=== PATIENT | male | born 1945 | race Caucasian/White ===

== ENCOUNTER 2016-11-05 10:57 | Outpatient (CLI) ==
[2014-06-30 17:52] VITALS: BMI 32.8
== END 2016-11-05 10:58 ==
LOC: AMBL 10:57
PROVIDERS: ATTEND Family Medicine
DX: Z04.1 Encounter for examination and observation following transport accident (principal); V43.62XA Car passenger injured in collision with other type car in traffic accident, initial encounter

== ENCOUNTER 2017-12-07 07:53 | Day surgery (SDC) ==
[2014-06-30 17:52] VITALS: BMI 32.8
[2017-12-07] MEDS ORDERED: LIDOCAINE 1% 20 ML MDV ID STA (09:00)
[2017-12-07 09:10] VITALS: TEMP 98.2
[2017-12-07] MEDS ORDERED: VERSED ONE (10:35)
[2017-12-07] MEDS ORDERED: DIPRIVAN 20 ML VIAL IVP ONE (10:35)
[2017-12-07 11:47] VITALS: BP 121/67
--- NOTE | 2017-12-08 08:22 | OP ---
PROCEDURE: COLONOSCOPY TO THE CECUM. ENDOSCOPIST: Laly EASTON M.D. INDICATION: HISTORY OF POLYPS INSTRUMENT: [employer]oupe-190. MEDICATION: PER ANESTHESIA. PROCEDURE: The patient was positioned for colonoscopy. The digital rectal exam was negative. The colonoscope was advanced through the rectum into the colon from there to the level of the cecum. Difficult exam related to tortuosity and poor visibility. [place] Bowel Prep score 1+2+1=4. At the hepatic flexure we found a 1cm polyp at the hepatic flexure. Difficulty remaining positioning on it. Removed with some mild oozing and a clip was placed. An enlongated pedunculated polyp in the transverse colon removed using snare cautery. Again the prep was poor through most of the colon making it difficult to see polyps. Retroflex exam was negative. Withdraw time 9 minutes and 15 seconds. It should be noted that we spent most of her time on inserted trying to removed the hepatic flexure polyp. PLAN: 1. Repeat in 6 months with a 2 day prep at that time. CC: Dr. Adebayo ZAMUDIO
== END 2017-12-07 11:45 | disposition home or self-care (01) ==
LOC: SURG 07:53
PROVIDERS: ATTEND Internal Medicine Gastroenterology
DX: Z86.010 Personal history of colon polyps (principal); D12.3 Benign neoplasm of transverse colon

== ENCOUNTER 2018-06-21 07:41 | Day surgery (SDC) ==
[2014-06-30 17:52] VITALS: BMI 32.8
[2018-06-21 08:17] VITALS: TEMP 98.3
[2018-06-21] MEDS ORDERED: LIDOCAINE 1% 20 ML MDV ID STA (08:19)
[2018-06-21] MEDS ORDERED: DIPRIVAN 20 ML VIAL IVP ONE (09:00)
[2018-06-21] MEDS ORDERED: VERSED ONE (09:00)
[2018-06-21 10:53] VITALS: BP 112/56
--- NOTE | 2018-06-22 11:20 | OP ---
PROCEDURE: COLONOSCOPY TO THE CECUM WITH SNARE POLYPECTOMY. ENDOSCOPIST: Laly EASTON M.D. INDICATION: HISTORY OF POLYPS. INSTRUMENT: [employer]-190. MEDICATION: PER ANESTHESIA. PROCEDURE: The patient was positioned for colonoscopy. The digital rectal exam was negative. The colonoscope was inserted through the anus and advanced to the cecum. The cecum was identified using the ileocecal valve and the appendiceal orifice as landmarks. The scope was slowly withdrawn through an adequately prepped colon. [place] Bowel Prep Score 2+2+2 = 6. Three polyps in the hepatic region removed using cold snare polypectomy. All were less than 5 mm in size. Diverticulosis of the left colon. Retroflex exam otherwise normal. Withdrawal time 13 minutes and 14 seconds. PLAN: 1. Repeat colonoscopy in 3 years. CC: DR. PHILLIP ZAMUDIO
== END 2018-06-21 10:15 | disposition home or self-care (01) ==
LOC: SURG 07:41
PROVIDERS: ATTEND Internal Medicine Gastroenterology
DX: Z86.010 Personal history of colon polyps (principal); K57.90 Diverticulosis of intestine, part unspecified, without perforation or abscess without bleeding; D12.3 Benign neoplasm of transverse colon

== ENCOUNTER 2018-09-01 09:14 | Emergency (ER) ==
[2018-09-01 09:23] VITALS: BP 154/73; TEMP 98.6; BMI 28.1
--- NOTE | 2018-09-01 10:13 | DI ---
EXAM: Left hand three views HISTORY: Blunt trauma to hand. FINDINGS: No fracture or dislocation is identified. Mild diffuse arthropathy is noted. Joints are i ntact. No soft tissue finding. IMPRESSION: 1. No fracture or dislocation.
--- NOTE | 2018-09-01 10:15 | ED.PDOC ---
General ED Provider: Dr. DESIRAE RITTER Chief Complaint: Hand Pain/Injury Stated Complaint: Bilateral blunt hand injury. no wrist involvement . Time Seen by Physician: 09:17 (seen with CASEY SEE PHOTOS) Mode of Arrival: Walk-In Information Source: Patient Exam Limitations: No limitations Primary Care Provider: ANTWAN FISHER Nursing and Triage Documentation Reviewed and Agree: Yes Does patient meet sepsis criteria?: No System Inflammatory Response Syndrome: Not Applicable Sepsis Protocol: For patient's 13 years and over: Temp is 96.8 and below OR 101 and greater Pulse >90 BPM Resp >20/minute Acutely Altered Mental Status Are patient's symptoms suggestive of a new infection, such as: -Pneumonia -Skin, Soft Tissue -Endocarditis -UTI -Bone, Joint Infection -Implantable Device -Acute Abdominal Infection -Wound Infection -Meningitis -Blood Stream Catheter Infection -Unknown Musculoskeletal Complaint Exam - Hand/Wrist Complaint/Exam Location of Pain: Reports: Right, Left, Hand Mechanism of Injury: Reports: Trauma (BLUNT HAND WITH A TRASH CAN LID ) Onset/Duration: 1 DAY AGO AT HOME Symptoms Are: Still present Onset of Pain: Reports: Immediate Initial Severity: Mild Current Severity: Mild Location: Reports: Discrete Character: Reports: Aching (UNABLE TO FULLY FLEX RIGHT 3RD FINGER DUE TO PAIN ) Aggravating: Reports: Movement Associated Signs and Symptoms: Reports: Swelling ( CONTUSION PLEASE REFER TO SUBMITTED PHOTOS) Dominant Hand: Right Related Surgical History: Reports: None Hand/Wrist Findings: Present: Swelling, Ecchymosis (REFER TO PHOTOS) Tenderness: Present: Carpal, Metacarpal, Phalanx. Absent: Radius, Ulna, Snuff box Compartment Syndrome Risk Factors: Present: Pain Differential Diagnoses: Closed Fracture, Open Fracture, Sprain, Strain Review of Systems - Review Of Systems Constitutional: Reports: No symptoms Eyes: Reports: No symptoms Ears, Nose, Mouth, Throat: Reports: No symptoms Respiratory: Reports: No symptoms Cardiac: Reports: No symptoms GI: Reports: No symptoms : Reports: No symptoms Musculoskeletal: Reports: Back pain Skin: Reports: No symptoms Neurological: Reports: No symptoms Endocrine: Reports: No symptoms Hematologic/Lymphatic: Reports: No symptoms All Other Systems: Reviewed and Negative Past Medical History - Past Medical History Previously Healthy: Yes Endocrine: Reports: Hypothyroid, Dyslipidemia Cardiovascular: Reports: Hypertension Respiratory: Reports: None Hematological: Reports: None Gastrointestinal: Reports: None Genitourinary: Reports: None Neuro/Psych: Reports: None Musculoskeletal: Reports: None Cancer: Reports: None - Surgical History General Surgical History: Reports: None - Family History Family History: Reports: None - Social History Smoking Status: Former smoker Hx Substance Use: No Alcohol Screening: None - Immunizations Tetanus Shot up to Date: No (allergy) Physical Exam - Physical Exam Appearance: Well-appearing, No pain distress, Well-nourished Eyes: JOSUE, EOMI, Conjunctiva clear ENT: Ears normal, Nose normal, Oropharynx normal Respiratory: Airway patent, Breath sounds clear, Breath sounds equal, Respirations nonlabored Cardiovascular: RRR, Pulses normal, No rub, No murmur GI/: Soft, Nontender, No masses, Bowel sounds normal, No Organomegaly Musculoskeletal: Limited ROM (RIGHTE MIDDLE FINGER ) Skin: Warm, Dry (LACERATION OF THE RIGHT HAND SEE PHOTOS ) Neurological: Sensation intact, Motor intact, Reflexes intact, Cranial nerves intact, Alert, Oriented Psychiatric: Affect appropriate, Mood appropriate Procedures - Laceration/Wound Repair No standard instances Wound Description: Flap Wound Length (cm): 2CM Wound Width: 3MM Wound Depth: 3MM Wound Explored: Contaminated Wound Irrigated: Yes (EXTENSIVELY PRESENT ROBBIN.N.) Wound Prep: Saline, Hibiclens Anesthesia: Lidocaine (2 ML ) Wound Debrided: Minimal Undermining: Moderate Wound Margins: Vermilion border aligned, Flaps aligned Wound Repaired With: Sutures Suture Size and Type: 4 PROLENE Number of Sutures: 6 Number of [place]: 0 Deep Layer Suture Size and Type: NO Sterile Dressing Applied?: Yes Splint Applied?: Yes Progress: PT SENT TO CT SCAN TO SEE THE RESULT OF THE EXTENSIVE WOUND IRRIGATION FOR F/ B. FINDINGS DISCUSSED WITH PT. PT PLACED ON OUT PT ANTIBIOTICS. PHOTOS OF BEFORE AND AFTER SUBMITTED . Critical Care Note - Critical Care Note Total Time (mins): 0 Course - Course Orders, Labs, Meds: Orders Category Date Time Status Ceftriaxone Sodium [Rocephin] MEDS 09/01/18 11:00 Discontinued 1 gm IM ONCE STA Lidocaine HCl/Pf [Lidocaine HCl 1% Sdv] MEDS 09/01/18 11:00 Discontinued 2.1 ml IM ONCE STA Lidocaine HCl/Pf [Lidocaine HCl 1% Sdv] MEDS 09/01/18 10:33 Discontinued 5 ml SUBCUT ONCE STA CT HAND RIGHT WITHOUT CONTRAST Stat RADS 09/01/18 10:55 Completed HAND, LEFT 3 VIEWS Stat RADS 09/01/18 09:37 Completed HAND, RIGHT 3 VIEWS Stat RADS 09/01/18 09:37 Completed Medications Discontinued Medications Generic Name Dose Route Start Last Admin Trade Name Janna PRN Reason Stop Dose Admin Ceftriaxone Sodium 1 gm 09/01/18 11:00 09/01/18 11:23 Rocephin IM 09/01/18 11:01 1 gm ONCE STA Administration Lidocaine HCl 5 ml 09/01/18 10:33 09/01/18 10:55 Lidocaine Hcl 1% Sdv SUBCUT 09/01/18 10:34 5 ml ONCE STA Administration Lidocaine HCl 2.1 ml 09/01/18 11:00 09/01/18 11:28 Lidocaine Hcl 1% Sdv IM 09/01/18 11:01 2.1 ml ONCE STA Administration Vital Signs: Temp Pulse Resp BP Pulse Ox 09/01/18 09:15 98.6 F 62 20 154/73 H 98 Departure - Departure Time of Disposition: 12:49 (SEE PHOTOS) Disposition: HOME SELF-CARE Discharge Problem: Hand pain Laceration of finger of right hand Qualifiers: Encounter type: initial encounter Finger: middle finger Damage to nail status: with damage Foreign body presence: without foreign body Qualified Code(s): S61.312A - Laceration without foreign body of right middle finger with damage to nail, initial encounter Instructions: Laceration (ED), Acute Wound Care (ED) Condition: Good Pt referred to PMD for follow-up: Yes IPMP verified?: No Additional Instructions: Please call your Family Physician as soon as possible to schedule a follow-up appointment. Prescriptions: Amoxicillin 500 mg PO Q8HR #21 tablet Allergies/Adverse Reactions: Allergies morphine Allergy (Mild, Verified 09/01/18 09:23) Nausea CHEST PAIN codeine Adverse Reaction (Severe, Verified 09/01/18 09:23) SOA Tetanus Vaccines and Toxoid [Tetanus Vaccines & Toxoid] Adverse Reaction (Mild, Verified 09/01/18 09:23) Rash Home Medications: Ambulatory Orders Aspirin [Aspirin EC] 1 tab PO DAILY 03/09/13 Fish Oil/Dha/Epa [Fish Oil 1,200 mg Fish Oil] 1 tab PO DAILY 03/09/13 Levothyroxine Sodium [Synthroid] 1 tab PO DAILY 03/09/13 Losartan Potassium [Cozaar] 1 tab PO BEDTIME 03/09/13 Metoprolol Tartrate [Lopressor] 1 tab PO DAILY 03/09/13 Atorvastatin Calcium 40 mg PO BEDTIME 06/18/18 Amoxicillin 500 mg PO Q8HR #21 tablet 09/01/18 Ascorbic Acid [Vitamin C] 1,000 mg PO DAILY 09/01/18
--- NOTE | 2018-09-01 10:32 | DI ---
EXAM: Three views of the right hand. History: Right hand trauma. Findings: No acute fracture or dislocation. Mild to moderate polyarticular joint space narrowing wi th osteophyte formation. There is focal soft tissue swelling with a few soft tissue radiodensities i nvolving the PIP joint of the third digit. Atherosclerotic vascular calcifications Impression: 1. No acute osseous abnormality. 2. Polyarticular arthritis. 3. Focal soft tissue swelling of the PIP joint of the third digit with a few small radiopaque foreig n bodies. 4. Atherosclerotic vascular disease
[2018-09-01] MEDS ORDERED: LIDOCAINE HCL 1% SDV SUBCUT STA (10:33)
[2018-09-01] MEDS ORDERED: ROCEPHIN IM STA (11:00)
[2018-09-01] MEDS ORDERED: LIDOCAINE HCL 1% SDV IM STA (11:00)
--- NOTE | 2018-09-01 11:40 | CT ---
EXAM: CT of the right hand without contrast History: Right hand trauma. Technique: Multiplanar CT images through the right hand were obtained without the administration of IV contrast Findings: No acute fracture or dislocation. Mild to moderate polyarticular joint space narrowing. Soft tissue swelling of the third digit at the PIP joint with small associated subcutaneous radiopaqu e foreign bodies. Atherosclerotic vascular calcifications. Impression: 1. No acute osseous abnormality. 2. Polyarticular arthritis. 3. Soft tissue swelling of the third digit at the PIP joint with small associated subcutaneous radio paque foreign bodies. 4. Atherosclerotic vascular disease
== END 2018-09-01 11:55 | disposition home or self-care (01) ==
LOC: ED 09:14
DX: S61.222A Laceration with foreign body of right middle finger without damage to nail, initial encounter (principal); S69.92XA Unspecified injury of left wrist, hand and finger(s), initial encounter; W22.8XXA Striking against or struck by other objects, initial encounter
CPT/HCPCS: 96372; 99283